=== PATIENT | male | born 1975 | race Caucasian/White ===

== ENCOUNTER 2023-10-04 03:13 | Observation (INO) | payer OTHER ==
[2023-10-04] MEDS: LACTATED RINGERS SOLUTION 1000 ML INFUS.BAG IV ONE (04:09)
[2023-10-04 04:48] LABS: INR 0.98 (0.83-1.09); PROTHROMBIN TIME (PATIENT) 11.1 SEC (9.7-13.0)
[2023-10-04 04:50] LABS: ACTIVATED PTT 36.3 SECONDS (25.2-36.5)
[2023-10-04 04:59] LABS: POTASSIUM 4.4 mmol/L (3.5-5.1)
[2023-10-04 05:02] LABS: ALBUMIN 4.1 g/dl (3.4-5.0); BLOOD UREA NITROGEN 11.3 mg/dL (7-18)
[2023-10-04 05:08] LABS: BILIRUBIN,TOTAL 0.5 mg/dL (0.2-1); TOT PROT 7.7 g/dl (6.4-8.2)
[2023-10-04 05:16] LABS: BASO % 0.9 % (0-2.0); EOS % 2.6 % (0-4.5); HEMATOCRIT 49.8 % (35.4-49); HEMOGLOBIN 16.7 GM/dL (11.7-16.9); MCH 32.6 pg (25.7-33.7); MCHC 33.6 g/dl (32.0-35.9); MEAN CELL VOLUME 97.1 fl (80-96); MEAN PLT VOLUME 7.6 fl (7.5-11.1); MONO % 5.7 % (3.8-10.2); NEUT % 67.8 % (42.8-82.8); PLATELET COUNT 330 10^3/uL (134-434); RBC 5.13 M/mm3 (4.00-5.60); RDW 13.3 % (11.9-15.9); WHITE BLOOD COUNT 8.4 K/mm3 (4.0-10.0)
[2023-10-04 05:32] LABS: CALCIUM 9.1 mg/dL (8.5-10.1); CREATININE 0.8 mg/dL (0.55-1.3)
[2023-10-04 06:25] LABS: MAGNESIUM 2.4 mg/dL (1.8-2.4)
[2023-10-04 15:55] VITALS: BMI 23.4
[2023-10-05 11:21] LABS: PHOSPHOROUS 4.5 mg/dL (2.5-4.9)
[2023-10-05 11:23] LABS: MAGNESIUM 2.3 mg/dL (1.8-2.4)
[2023-10-05 11:27] LABS: PHOSPHOROUS 3.4 mg/dL (2.5-4.9)
[2023-10-05] MEDS: ASPIRIN COATED 81 MG TABLET.EC PO SCH (13:57)
[2023-10-05] MEDS ORDERED: NICOTINE 14 MG/24 HOURS TOPICAL PATCH TD SCH (14:00)
[2023-10-05 14:24] LABS: CHOLESTEROL 197 mg/dL (50-200)
[2023-10-05 14:25] LABS: LDL CHOLESTEROL (ONLY SJRH) 109 mg/dL (5-100)
[2023-10-05 14:27] LABS: HDL CHOLESTEROL 63 mg/dL (40-60)
[2023-10-05 14:53] VITALS: BP 124/80; PULSE 75; RESP 18; TEMP 98.2
== END 2023-10-05 16:16 | disposition left against medical advice (07) ==
LOC: JER 03:13 → JERBED 06:37 → J4W 12:28
PROVIDERS: ADMIT Internal Medicine; ATTEND Internal Medicine
PROC: 3E0337Z Introduction of Electrolytic and Water Balance Substance into Peripheral Vein, Percutaneous Approach (ICD-10-PCS; principal; 2023-10-04)
DX: R07.89 Other chest pain (principal); R94.31 Abnormal electrocardiogram [ECG] [EKG]; R06.00 Dyspnea, unspecified; F17.200 Nicotine dependence, unspecified, uncomplicated
CPT/HCPCS: 36415; 71045-TC-FY; 80053; 80061; 83036; 83735; 84100; 84484; 85025; 85610; 85651; 85730; 86140; 86850; 86900; 86901; 93005; 93010; 93306-TC; 93351; 96360; 99285-25; G0378

== ENCOUNTER 2023-10-29 03:23 | Emergency (ER) | payer OTHER ==
[2023-10-29 03:31] VITALS: BP 122/84; PULSE 110; RESP 18; TEMP 98; BMI 23.6
== END 2023-10-29 04:25 | disposition home or self-care (01) ==
LOC: JER 03:23
DX: S06.0X0D Concussion without loss of consciousness, subsequent encounter (principal); W22.09XD Striking against other stationary object, subsequent encounter
CPT/HCPCS: 99282-25

== ENCOUNTER 2023-11-13 01:32 | Observation (INO) | payer OTHER ==
[2023-11-13 02:06] VITALS: RESP 18; TEMP 98.5; BMI 25.0
[2023-11-13 02:30] LABS: BASO % 1.4 % (0-2.0); EOS % 3.7 % (0-4.5); HEMATOCRIT 43.6 % (35.4-49); HEMOGLOBIN 14.8 GM/dL (11.7-16.9); LYMPH % 22.6 % (8-40); MCH 32.8 pg (25.7-33.7); MCHC 33.9 g/dl (32.0-35.9); MEAN CELL VOLUME 96.5 fl (80-96); MEAN PLT VOLUME 7.2 fl (7.5-11.1); MONO % 9.4 % (3.8-10.2); NEUT % 62.9 % (42.8-82.8); PLATELET COUNT 295 10^3/uL (134-434); RBC 4.52 M/mm3 (4.00-5.60); RDW 13.6 % (11.9-15.9); WHITE BLOOD COUNT 6.8 K/mm3 (4.0-10.0)
[2023-11-13 02:41] LABS: INR 0.93 (0.83-1.09); PROTHROMBIN TIME (PATIENT) 10.7 SEC (9.7-13.0)
[2023-11-13 02:44] LABS: ACTIVATED PTT 34.1 SECONDS (25.2-36.5); POTASSIUM 3.7 mmol/L (3.5-5.1)
[2023-11-13 02:46] LABS: ALBUMIN 3.7 g/dl (3.4-5.0); BLOOD UREA NITROGEN 12.2 mg/dL (7-18); CALCIUM 8.3 mg/dL (8.5-10.1); MAGNESIUM 2.3 mg/dL (1.8-2.4)
[2023-11-13 02:50] LABS: CREATININE 0.7 mg/dL (0.55-1.3)
[2023-11-13 02:51] LABS: BILIRUBIN,TOTAL 0.3 mg/dL (0.2-1); TOT PROT 7.2 g/dl (6.4-8.2)
[2023-11-13 02:54] LABS: N-TERMINAL BNP 16.6 pg/ml (5-125)
[2023-11-13] MEDS ORDERED: ACETAMINOPHEN INJECTION 100 ML IVPB ONE (02:59)
[2023-11-13] MEDS: ACETAMINOPHEN 1000 MG/100 ML BAG IVPB ONE (03:03)
[2023-11-13 03:25] VITALS: BP 132/93; PULSE 98
[2023-11-13] MEDS: ATORVASTATIN CA 80 MG TABLET (FP) PO ONE (04:11)
[2023-11-13] MEDS ORDERED: ASPIRIN 81 MG CHEWABLE TABLETS PO SCH (10:00)
[2023-11-13] MEDS ORDERED: ATORVASTATIN CA 80 MG TABLET (FP) PO SCH (22:00)
== END 2023-11-13 06:02 | disposition left against medical advice (07) ==
LOC: JER 01:32 → JERBED 03:52
PROVIDERS: ADMIT Internal Medicine; ATTEND Internal Medicine
PROC: 3E033NZ Introduction of Analgesics, Hypnotics, Sedatives into Peripheral Vein, Percutaneous Approach (ICD-10-PCS; principal; 2023-11-13)
DX: R07.9 Chest pain, unspecified (principal); F10.99 Alcohol use, unspecified with unspecified alcohol-induced disorder; R94.39 Abnormal result of other cardiovascular function study; R94.31 Abnormal electrocardiogram [ECG] [EKG]; R00.0 Tachycardia, unspecified; R11.10 Vomiting, unspecified; Z87.891 Personal history of nicotine dependence
CPT/HCPCS: 36415; 71045-TC-FY; 80053; 83735; 83880; 84484; 85025; 85610; 85730; 86850; 86900; 86901; 93005; 93010; 96374; 99285-25; G0378; J0131